=== PATIENT | male | born 1990 | race Caucasian/White ===

== ENCOUNTER 2016-08-04 20:31 | Emergency (ER) | payer OTHER ==
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
[2016-08-04] MEDS ORDERED: AMOXICILLIN TR/POT CLAVULANATE 500-125 MG TAB PO ONE (21:17)
[2016-08-04] MEDS: OXYCODONE-ACETAMINOPHEN 5-325 MG TABLET PO ONE ×2 (21:42→23:47)
[2016-08-04] MEDS ORDERED: LIDOCAINE 2% VISCOUS SOLN 20 ML UDCUP PO ONE (22:54)
[2016-08-04] MEDS ORDERED: HYDROCODONE/ACETAMINOPHEN 5-325 MG 6 TAB/DSPK PO PRN (22:54)
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
[2016-08-05 00:44] VITALS: BP 137/81
== END 2016-08-04 23:45 | disposition home or self-care (01) ==
LOC: ER 20:31
DX: T28.0XXA Burn of mouth and pharynx, initial encounter (principal); F17.200 Nicotine dependence, unspecified, uncomplicated; W39.XXXA Discharge of firework, initial encounter
CPT/HCPCS: 99282; J3490